=== PATIENT | male | born 1965 | race Caucasian/White ===

== ENCOUNTER 2017-02-08 10:11 | Emergency (ER) | payer MEDICAID ==
[~2017-02-08] VITALS: Ht 170.2 cm; Wt 72.6 kg
--- NOTE | 2017-02-08 10:18 | NUR ---
[id number], CAME TO ER C/O L ELBOW PAIN AND SWELLING S/P TRIPPED AND FELL LAST NIGHT, SMELL ETOH DURING ASSESSMENT. RESP IS EVEN AND UNLABORED WITH NAD NOTED. -KO. DR BARTLETT AT FOR EVAL.
[2017-02-08] MEDS ORDERED: ONDANSETRON 4 MG TAB.RAPDIS SL ONE (10:30)
[2017-02-08] MEDS ORDERED: HYDROCODONE/APAP 5/325MG 1 EACH TABLET PO ONE (10:30)
[2017-02-08] MEDS ORDERED: HYDROCODONE/APAP 5/325MG 1 EACH TABLET ONE (10:41)
[2017-02-08] MEDS ORDERED: ONDANSETRON 4 MG TAB.RAPDIS ONE (10:41)
--- NOTE | 2017-02-08 11:43 | NUR ---
SEEN BY WILL. SHOULDER SLING PROVIDED. D/C IN STABLE CONDITION.
[2017-02-08 11:44] VITALS: BP 132/77
== END 2017-02-08 11:46 | disposition home or self-care (01) ==
LOC: ER 10:13
DX: S53.402A Unspecified sprain of left elbow, initial encounter (principal); K21.9 Gastro-esophageal reflux disease without esophagitis; M54.30 Sciatica, unspecified side; F17.200 Nicotine dependence, unspecified, uncomplicated; K40.20 Bilateral inguinal hernia, without obstruction or gangrene, not specified as recurrent; W01.0XXA Fall on same level from slipping, tripping and stumbling without subsequent striking against object, initial encounter; Y93.89 Activity, other specified; Y92.89 Other specified places as the place of occurrence of the external cause; Y99.8 Other external cause status
CPT/HCPCS: 73080; 99284; A4606; Q0162; Z7610